=== PATIENT | female | born 1995 | race Caucasian/White ===

== ENCOUNTER 2017-03-24 11:08 | Inpatient (IN) | payer OTHER ==
[~2017-03-24] VITALS: Ht 167.6 cm; Wt 75.7 kg
[~2017-03-24 11:08] MED LIST: OXYTOCIN 30 UNITS/LR 500 ML BAG IV ONE
[2017-03-24 11:22] VITALS: Ht 167.6 cm; Wt 75.7 kg
[2017-03-24] MEDS ORDERED: PNV11TAB PO (11:25)
[2017-03-24] MEDS ORDERED: OXYTOCIN 30 UNITS/LR 500 ML IV PRN ×2 (11:30→21:00)
[2017-03-24] MEDS ORDERED: METHYLERGONOVINE 0.2 MG INJ IM PRN ×2 (11:30→21:00)
[2017-03-24] MEDS ORDERED: MISOPROSTOL 200 MCG TAB PR PRN ×2 (11:30→21:00)
[2017-03-24] MEDS ORDERED: OXYTOCIN 30 UNITS/LR 500 ML IV SCH (11:30)
[2017-03-24] MEDS ORDERED: CARBOPROST 250 MCG INJ IM PRN ×2 (11:30→21:00)
[2017-03-24] MEDS ORDERED: CEFAZOLIN 2 GM/50 ML (PMX) 50 ML IV SCH (11:30)
[2017-03-24 11:32] VITALS: BP 112/65; PULSE 20; RESP 20
[2017-03-24] MEDS: LACTATED RINGER'S 1,000 ML IV SCH ×3 (11:51→20:34)
[2017-03-24 12:31] LABS: BASOPHILS % 0.4 % (0.0-2.0); EOSINOPHILS # 0.2 10^3/ul (0.0-0.5); EOSINOPHILS % 1.3 % (0.0-7.0); HEMATOCRIT 35.7 % (37.0-47.0); HEMOGLOBIN 11.5 g/dl (12.0-16.0); MEAN CORPUSCULAR HEMOGLOBIN 27.8 pg (29.0-33.0); MEAN CORPUSCULAR HGB CONC 32.2 g/dl (32.0-37.0); MEAN CORPUSCULAR VOLUME 86.2 fl (82.0-101.0); MEAN PLATELET VOLUME 12.8 fl (7.4-10.4); MONOCYTE # 0.6 10^3/ul (0.3-0.9); MONOCYTES % 5.1 % (0.0-11.0); NEUTROPHIL # 7.3 10^3/ul (1.6-7.5); NEUTROPHILS % 65.7 % (39.0-77.0); PLATELET COUNT 243 10^3/UL (140-415); RED BLOOD COUNT 4.14 10^6/ul (4.20-5.40); RED CELL DISTRIBUTION WIDTH 14.3 % (11.5-14.5); WHITE BLOOD COUNT 11.2 10^3/ul (4.8-10.8)
[2017-03-24 12:53] LABS: INR 1.01; PROTIME 13.3 Sec (12.2-14.2)
[2017-03-24 12:54] LABS: PARTIAL THROMBOPLASTIN TIME 29.4 Sec (25.0-35.0)
--- NOTE | 2017-03-24 13:14 | HP ---
Date/Time of Note Date/Time of Note DATE: 03/24/17 TIME: 13:12 OB - History Hx of Present Chief Complaint: scheduled c/s Estimated Due Date: Mar 31, 2017 : 4 Para: 1 Spontaneous : 2 Therapeutic : 0 Care: Good Care Ultrasounds: Normal mid trimester US Obstetrical Complications: None Medical Complications: None Past Family/Social History * Past Medical, Surgical, Family and Obstetric Histories reviewed from chart. GBS Status: Negative OB Admission Exam Vital Signs Vital Signs Vital Signs Date Time Temp Pulse Resp B/P Pulse Ox O2 Delivery O2 Flow Rate FiO2 03/24/17 11:32 98.2 20 20 112/65 Room Air Physical Exam HEENT: WNL Heart: Rhythm Normal Lungs: Clear, Equal Abdomen: WNL Extremities: Normal Reflexes: Normal Heart Rate: 140's Accelerations: Accelerations Present Decelerations: No Decelerations Varibility: Moderate Last 72 hours Lab Results CBC & BMP 03/24/17 11:45 OB Assessment/Plan Reason for admission: section Plan: Section JIGNESH BRADFORD MD Mar 24, 2017 13:14
[2017-03-24] MEDS ORDERED: ONDANSETRON 4 MG INJ ONE ×2 (14:59→16:16)
[2017-03-24] MEDS ORDERED: PHENYLephrine (100 MCG/ML) 5ML SYG ONE ×4 (14:59→16:11)
[2017-03-24] MEDS ORDERED: OXYTOCIN 10 UNIT INJ ONE (14:59)
[2017-03-24] MEDS ORDERED: morphine SULFATE/PF (10 MG/10 ML) INJ ONE (14:59)
[2017-03-24] MEDS ORDERED: FENTAnyl 50 MCG/ML VIAL ONE (15:46)
--- NOTE | 2017-03-24 16:15 | SIPON ---
Date/Time of Note Date/Time of Note DATE: 03/24/17 TIME: 16:13 Operative Report Preoperative Diagnosis 39 weeks with previous c/s Postoperative Diagnosis Same Operation/Procedure Performed Repeat c/s Surgeon Jignesh Bradford MD cafeteria assistant Federico Barbour MD Anesthesia: spinal Estimated blood loss: other (500 ml) Transfusion Required none Specimen Placenta Grafts/Implants none Complications none JIGNESH BRADFORD MD Mar 24, 2017 16:15
[2017-03-24] MEDS ORDERED: METOCLOPRAMIDE 10 MG INJ ONE (16:16)
[2017-03-24] MEDS ORDERED: morphine 2 MG INJ IV PRN (17:00)
[2017-03-24] MEDS ORDERED: NALOXONE (0.4 MG/ML) INJ IV PRN (17:00)
[2017-03-24] MEDS ORDERED: ONDANSETRON 4 MG INJ IV PRN (17:00)
[2017-03-24] MEDS ORDERED: KETOROLAC 30 MG INJ IV PRN (17:00)
[2017-03-24] MEDS ORDERED: DIPHENHYDRAMINE 50 MG INJ IV PRN (17:00)
--- NOTE | 2017-03-24 17:14 | OPR ---
DATE OF OPERATION: 03/24/2017 PREOPERATIVE DIAGNOSIS: at 39 weeks, previous section. POSTOPERATIVE DIAGNOSIS: at 39 weeks, previous section. OPERATION PERFORMED: Repeat low-transverse section. SURGEON: Daniel Tolentino MD CARROTING MACHINE OPERATOR: Nevin Barbour MD ANESTHESIA: Spinal. ANESTHESIOLOGIST: Dr. Gleason OPERATIVE PROCEDURE: The patient was taken to the operating room, placed on the operating table. After successful spinal anesthesia was given, the patient was placed in supine position. The area was prepared and draped in the usual sterile fashion. Spinal anesthesia was tested and was satisfactory. Using scalpel, Pfannenstiel incision was made about 2 fingerbreadths above the symphysis pubis. The incision was carried down to the fascia. The fascia was incised and extended bilaterally with curved Pierson scissors. Two Katelyn's were used to separate the fascia from the muscle. The muscle was dissected in the midline down to the peritoneum. The peritoneum was secured with 2 Stefania's and incised with Metzenbaum scissors. Using a scalpel, a small transverse incision was made on the lower segment of the uterus. Upon entering the uterine cavity, bandage scissors were inserted to extend the incision bilaterally curved up. The baby was delivered from cephalic presentation. After suctioning clear of amniotic fluid, the baby was handed off to the team in attendance. Apgars were 8 and 9. The placenta was delivered without difficulty. The uterus was closed with number 1 Monocryl continuous locked. After assuring hemostasis, both ovaries and tubes were inspected. All looked normal. The peritoneum was closed with 2-0 Vicryl continuous. The fascia was closed with number 1 Vicryl continuous in 2 segments. Subcutaneous tissue was reapproximated with 2-0 plain. The skin was closed with aiden. ESTIMATED BLOOD LOSS: 500 mL. COUNTS: All counts were correct. Dictated By: Daniel Tolentino MD /irma/deja /Document#: [id number]
[2017-03-24] MEDS ORDERED: OXYTOCIN 30 UNITS/LR 500 ML IV ONE (20:42)
[2017-03-24] MEDS: OXYTOCIN 30 UNITS/LR 500 ML IV SCH (20:49)
[2017-03-24] MEDS: SENNA/DOCUSATE NA (8.6MG/50MG) TAB PO SCH (21:00)
[2017-03-24] MEDS ORDERED: OXYCODONE/ACETAMINOPHEN (5/325) TAB PO PRN (21:00)
[2017-03-24] MEDS ORDERED: LANOLIN 7 GM TUBE TOP PRN (21:00)
[2017-03-24 21:05] VITALS: BP 108/57; PULSE 68; RESP 18
[2017-03-24] MEDS: IBUPROFEN 800 MG TAB PO SCH (22:00)
[2017-03-25 00:10] VITALS: BP 95/46; PULSE 69; RESP 18
[2017-03-25] MEDS: OXYTOCIN 30 UNITS/LR 500 ML IV SCH (00:34)
[2017-03-25 04:10] VITALS: BP 100/49; PULSE 75; RESP 18
[2017-03-25] MEDS: LACTATED RINGER'S 1,000 ML IV SCH ×2 (05:11→12:34)
[2017-03-25] MEDS: IBUPROFEN 800 MG TAB PO SCH ×3 (06:00→21:51)
[2017-03-25 08:00] VITALS: BP 92/43; PULSE 68; RESP 18
[2017-03-25] MEDS: SENNA/DOCUSATE NA (8.6MG/50MG) TAB PO SCH ×2 (10:03→21:05)
[2017-03-25 10:12] LABS: BASOPHIL # 0.1 10^3/ul (0.0-0.1); BASOPHILS % 0.4 % (0.0-2.0); EOSINOPHILS # 0.1 10^3/ul (0.0-0.5); EOSINOPHILS % 0.8 % (0.0-7.0); HEMATOCRIT 36.2 % (37.0-47.0); HEMOGLOBIN 11.2 g/dl (12.0-16.0); LYMPHOCYTES # 1.9 10^3/ul (0.8-2.9); LYMPHOCYTES % 14.5 % (15.0-51.0); MEAN CORPUSCULAR HEMOGLOBIN 27.1 pg (29.0-33.0); MEAN CORPUSCULAR HGB CONC 30.9 g/dl (32.0-37.0); MEAN CORPUSCULAR VOLUME 87.4 fl (82.0-101.0); MEAN PLATELET VOLUME 12.7 fl (7.4-10.4); MONOCYTE # 0.8 10^3/ul (0.3-0.9); MONOCYTES % 6.1 % (0.0-11.0); NEUTROPHILS % 77.7 % (39.0-77.0); PLATELET COUNT 221 10^3/UL (140-415); RED BLOOD COUNT 4.14 10^6/ul (4.20-5.40); RED CELL DISTRIBUTION WIDTH 14.5 % (11.5-14.5); WHITE BLOOD COUNT 12.9 10^3/ul (4.8-10.8)
[2017-03-25 12:00] VITALS: BP 95/50; PULSE 68; RESP 18
[2017-03-25] MEDS: OXYCODONE/ACETAMINOPHEN (5/325) TAB PO PRN ×2 (18:26→22:33)
--- NOTE | 2017-03-25 19:30 | QN ---
Documentation Comment No complaint Afebrile VSS Abdomen soft ND POD #1 Stable Ambulate Advance diet. JIGNESH BRADFORD MD Mar 25, 2017 19:30
[2017-03-25 20:00] VITALS: BP 99/52; PULSE 69; RESP 21
[2017-03-26 04:00] VITALS: BP 98/80; PULSE 80; RESP 20
[2017-03-26] MEDS: IBUPROFEN 800 MG TAB PO SCH ×3 (06:01→21:33)
[2017-03-26 08:00] VITALS: BP 95/53; RESP 18
[2017-03-26] MEDS ORDERED: INFLUENZA VIRUS VACCINE 0.5 ML (DISPENSING) IM* ONE (09:00)
[2017-03-26] MEDS: SENNA/DOCUSATE NA (8.6MG/50MG) TAB PO SCH ×2 (09:57→21:33)
[2017-03-26] MEDS: OXYCODONE/ACETAMINOPHEN (5/325) TAB PO PRN ×2 (11:32→23:56)
[2017-03-26 13:30] VITALS: BP 106/46; PULSE 71; RESP 20
--- NOTE | 2017-03-26 15:07 | QN ---
Documentation Comment c/o left sided chest pain. Afebrile VSS Abdomen soft Will get Cardiology consult JIGNESH BRADFORD MD Mar 26, 2017 15:07
[2017-03-26 15:30] VITALS: BP 98/50; PULSE 63; RESP 18
[2017-03-26 19:30] VITALS: BP 113/51; PULSE 80; RESP 18
[2017-03-27 03:45] VITALS: BP 105/53; PULSE 65; RESP 18
[2017-03-27] MEDS: IBUPROFEN 800 MG TAB PO SCH ×3 (05:29→21:56)
[2017-03-27 08:00] VITALS: BP 99/51; RESP 18
[2017-03-27] MEDS ORDERED: DIPHTH/TET/ACEL PERTUSS (ADULT) 0.5 ML VIAL IM* ONE (09:00)
[2017-03-27] MEDS: SENNA/DOCUSATE NA (8.6MG/50MG) TAB PO SCH ×2 (09:46→21:55)
[2017-03-27 12:30] VITALS: BP 104/57; PULSE 78; RESP 18
[2017-03-27 16:00] VITALS: BP 108/55; PULSE 64; RESP 18
--- NOTE | 2017-03-27 16:03 | RADRPT ---
Echocardiogram Report Patient Name: ASH RODRIGUEZ Gender: Female Date: 1995 Study Date: 27-Mar-2017 Medical Record Transcriber: Althea Berry RDCS Location: [id number] Ref. Physician: KALEY HENSON Quality: Good Procedures: Transthoracic echocardiogram with complete 2D, M-Mode, and doppler examination. Indications: Chest Pain. Shortness of breath. 2D/M Mode Doppler Measurement Value Normal Ranges Measurement Value Normal Ranges LVIDd 2D 4.9 3.5 - 5.6 cm AV Peak Haresh 1.7 m/sec LVIDs 2D 3.3 2.1 - 4.1 cm AV Peak PG 12.0 mmHg FS 2D 32.8 % LVOT Peak Haresh 1.1 m/sec LVPWd 2D 0.9 0.6 - 1.1 cm LVOT Peak PG 4.0 mmHg IVSd 2D 0.9 0.6 - 1.1 cm MV E Peak Haresh 1.2 m/sec IVS/LVPW 2D 1.0 MV A Peak Haresh 0.6 m/sec AoR Diam 2D 2.2 2.0 - 3.7 cm MV E/A 2.0 LA/Ao 2D 2 0 - 1 MV Decel Time 218 msec EDV 2D 118.0 cm3 MV E/A 2.0 ESV 2D 35.9 cm3 TR Peak Haresh 2.6 m/sec LA Dimen 2D 3.3 2.3 - 4.0 cm TR Peak PG 26.0 mmHg RVSP 29.0 mmHg Findings Left Ventricle: Normal left ventricular systolic function. Normal left ventricular cavity size. Normal left ventricular wall thickness. Ejection fraction is visually estimated at 60 %. Tissue Doppler/Mitral Doppler indices are within normal limits. Right Ventricle: Normal right ventricular size. Normal right ventricular systolic function. Left Atrium: The left atrium is normal in size. Right Atrium: The right atrium is normal in size. Mitral Valve: Normal appearance and function of the mitral valve with trace physiologic regurgitation. Aortic Valve: Normal appearance of the aortic valve. No significant aortic stenosis or insufficiency. Tricuspid Valve: Normal appearance of the tricuspid valve. Estimated peak PA systolic pressure 29 mmHg. There is trace tricuspid regurgitation. Pulmonic Valve: Normal pulmonic valve appearance. Pericardium: Normal pericardium with no significant pericardial effusion. Aorta: Normal aortic root. IVC: Normal size and normal respiratory collapse consistent with normal right atrial pressure. Conclusions 1.Normal left ventricular systolic function. Normal left ventricular cavity size. Normal left ventricular wall thickness. Ejection fraction is visually estimated at 60 %. Tissue Doppler/Mitral Doppler indices are within normal limits. 2.Normal appearance and function of the mitral valve with trace physiologic regurgitation. 3.Normal appearance of the tricuspid valve. Estimated peak PA systolic pressure 29 mmHg. There is trace tricuspid regurgitation. Electronically Signed By: Kaley Henson 27-Mar-2017 16:02:14 -0700 Patient Name: ASH RODRIGUEZ Study Date: 27-Mar-2017 [id number]
[2017-03-27 16:07] LABS: THYROID STIMULATING HORMONE 2.16 MIU/L (0.465-4.680)
--- NOTE | 2017-03-27 16:40 | CONS ---
DATE OF ADMISSION: 03/24/2017 DATE OF CONSULTATION: 03/27/2017 CARDIOLOGY CONSULTATION REASON FOR CONSULTATION: Chest pain, assess for acute coronary syndrome, as well as shortness of br eath, assess for congestive heart failure. REQUESTING PHYSICIAN: JIGNESH BRADFORD MD. HISTORY OF PRESENT ILLNESS: Ms. Irizarry is a very pleasant 21-year-old female with history of G4, P2 with spontaneous abortions x2, who is status post delivery 3 days prior and now has compl aints of substernal chest pain ongoing for 1 to 2 days, both at rest and with exertion, described as a stabbing sensation across her chest and associated episodes of shortness of breath at rest and af ter walking she felt like she is just not able to catch a deep good breath. The patient most recent ly has had stable vital signs, denies current chest pain and shortness of breath. PAST MEDICAL HISTORY: As above in HPI. MEDICATIONS CURRENTLY IN HOSPITAL: 1. Motrin 800 mg q.8h. 2. Percocet. 3. Simethicone. 4. Senokot. 5. Lanolin. 6. Oxytocin. 7. Cytotec. ALLERGIES: NO KNOWN DRUG ALLERGIES. SOCIAL HISTORY: No current tobacco, ETOH or illicit drug use. FAMILY HISTORY: No history of cardiac or early CAD. REVIEW OF SYSTEMS: As above in HPI. CONSTITUTIONAL: No fevers, chills. PULMONARY: Shortness of breath. CARDIOVASCULAR: Chest pain. GASTROINTESTINAL: No vomiting. GENITOURINARY: Status post delivery. MUSCULOSKELETAL: No significant myalgias or arthralgias. ENDOCRINE: No documented diabetes mellitus or thyroid disease. PSYCHIATRIC: Possible anxiety. PHYSICAL EXAMINATION: VITAL SIGNS: Temperature 98.2, blood pressure 104/57, pulse 78, respiratory rate 18, saturating 99% . GENERAL: The patient is alert, awake, in no acute distress. NECK: JVP approximately 9 cm water. CHEST: Fair movement throughout with mildly decreased breath sounds at bases bilaterally. HEART: Regular rate and rhythm. Normal S1, S2, I/ systolic murmur, nondisplaced PMI. ABDOMEN: Positive bowel sounds, soft. EXTREMITIES: No pitting edema, 1+ pulses bilaterally, posterior tibial. LABORATORIES: As above in HPI with most recent from the 2nd, white count 7.9, hemoglobin 11.2, plat elet count of 221. RPR nonreactive. IMAGING STUDIES: No imaging studies for my review at this time. ECG: Reveals from today normal sinus rhythm at rate of 64 with mild sinus arrhythmia, normal axis a nd isolated T-wave inversion in lead V2. IMPRESSION: 1. Chest pain with positive reproducible chest pain on palpation. This is likely musculoskeletal p ain, assess for acute coronary syndrome. 2. Shortness of breath, assess for congestive heart failure with the patient's recent volume status and status post delivery with no significant edema and seems to be related to episodes of anxiety. 3. Abnormal electrocardiogram with anterior T-wave inversion. 4. Status post delivery, postop day #3. 5. History of asthma which may also relate to the patient's shortness of breath for which she uses inhaler. 6. Anemia. RECOMMENDATIONS: 1. At this time, would check serial EKGs to assess for any significant changes and thus check a rep eat EKG in the morning. EKG for any complaints of chest pain. 2. Would check a BNP to further assess the patient's current volume status. 3. Check 2-D echo to assess the patient's ejection fraction, wall motion and any major valve abnorm alities in the peripartum. 4. Would check general fasting lipid panel for general risk stratification and will send troponins q.6h. x2 to ensure patient's EKG abnormalities are chronic in nature and not due to any recent acute coronary syndrome. Thank you for allowing me to take part in the care of this patient. I will continue to follow very closely with you with recommendations to be made as the patient progresses through her inpatient hos pital clinical course. Dictated By: KALEY BLACK/FLY Conf#: [id number] DID#: [id number] CC: JIGNESH BRADFORD MD;*EndCC*
[2017-03-27 21:00] VITALS: BP 114/58; PULSE 74; RESP 17
--- NOTE | 2017-03-27 21:03 | QN ---
Documentation Comment No new complaint Afebrile VSS Abdomen soft ND Cariology consult noted and appreciated. Continue care per Cardiology. JIGNESH BRADFORD MD Mar 27, 2017 21:03
[2017-03-28] MEDS: OXYCODONE/ACETAMINOPHEN (5/325) TAB PO PRN (02:21)
[2017-03-28 04:00] VITALS: BP 113/66; PULSE 66; RESP 19
[2017-03-28] MEDS: IBUPROFEN 800 MG TAB PO SCH ×2 (05:33→13:37)
[2017-03-28 08:00] VITALS: BP 104/48; PULSE 67; RESP 18
[2017-03-28] MEDS: SENNA/DOCUSATE NA (8.6MG/50MG) TAB PO SCH (09:00)
--- NOTE | 2017-03-28 09:25 | RADRPT ---
Vent Rate: 64 bpm RR Interval: 0 msec [place] Interval: 152 msec QRS Duration: 80 msec QT Interval: 406 msec QTC Interval: 418 msec P-R-T [place]: 69 - 73 - 66 degrees Normal sinus rhythm with sinus arrhythmia Septal infarct , age undetermined Abnormal ECG Electronically Signed By: Shashank Pepe [id number]
--- NOTE | 2017-03-28 09:28 | RADRPT ---
Vent Rate: 65 bpm RR Interval: 0 msec [place] Interval: 158 msec QRS Duration: 82 msec QT Interval: 408 msec QTC Interval: 424 msec P-R-T [place]: 45 - 69 - 66 degrees Normal sinus rhythm with sinus arrhythmia Normal ECG Electronically Signed By: Shashank Pepe [id number]
[2017-03-28 12:00] VITALS: BP 110/58; PULSE 68; RESP 20
--- NOTE | 2017-03-28 12:23 | CONS ---
Date/Time of Note Date/Time of Note DATE: 03/28/17 TIME: 12:20 Assessment/Plan Assessment/Plan Chief Complaint/Hosp Course IMPRESSION: 1. Chest pain with positive reproducible chest pain on palpation. This is likely musculoskeletal pain, assess for acute coronary syndrome.-negative trop x 2/ NL EF by echo and no sig changes on repeat ecg. No current chest pain at this time 2. Shortness of breath, assess for congestive heart failure with the patient's recent volume status and status post delivery with no significant edema and seems to be related to episodes of anxiety. 3. Abnormal electrocardiogram with anterior T-wave inversion. 4. Status post delivery, postop day #3. 5. History of asthma which may also relate to the patient's shortness of breath for which she uses inhaler. 6. Anemia. Recc: -Continue supportive post-op care and Ibuprofen pain control -CP resolved and likely musculoskeletal -OK for d/c planning from cardiac standpoint Problems: Consultation Date/Type/Reason Admit Date/Time Mar 24, 2017 at 11:08 Initial Consult Date 03/27/2017 Type of Consultation: cardiology Reason for Consultation chest pain Referring Provider: JIGNESH BRADFORD MD Exam/Review of Systems Vital Signs Vitals Vital Signs Date Time Temp Pulse Resp B/P Pulse Ox O2 Delivery O2 Flow Rate FiO2 03/28/17 08:00 98.3 67 18 104/48 Room Air 03/28/17 04:00 0 03/25/17 09:41 21 Intake and Output 03/27/17 03/27/17 03/28/17 15:00 23:00 07:00 Intake Total 400 ml Balance 400 ml Exam Review of Systems: CONSTITUTIONAL: No fevers, chills. PULMONARY: No sob CARDIOVASCULAR: No chest pain/palpitations GASTROINTESTINAL: No nausea/vomiting. GENITOURINARY: No hematuria/dysuria. MUSCULOSKELETAL: No myagias/arthalgias. PSYCHIATRIC: The patient denies depression. NEUROLOGIC: No weakness Constitutional: alert, oriented Psych: no complaints Head: normocephalic ENMT: mucosa pink and moist Neck: jvd (9 cm water), supple Respiratory: clear to auscultation Cardiovascular: regular rate and rhythm Gastrointestinal: non-tender, soft Musculoskeletal: muscle tone (normal) Extremities: edema (none) Neurological: other (No focal deficits) Results Result Diagram: 03/25/17 0940 Results 24 hrs Laboratory Tests Test 03/27/17 14:45 03/27/17 18:12 03/28/17 00:31 B-Type Natriuretic Peptide 189 H Thyroid Stimulating Hormone (TSH) 2.160 Troponin I < 0.012 < 0.012 Medications Medications Current Medications Oxycodone/ Acetaminophen (Percocet (5/ 325)) 1 tab Q4H PRN PO PAIN LEVEL 4-6 Last administered on 03/26/17 06:01; Admin Dose 1 TAB; Start 03/24/17 at 21:00 Oxycodone/ Acetaminophen (Percocet (5/ 325)) 2 tab Q4H PRN PO PAIN LEVEL 7-10 Last administered on 03/28/17 02:21; Admin Dose 2 TAB; Start 03/24/17 at 21:00 Ibuprofen (Motrin) 800 mg Q8 PO Last administered on 03/28/17 05:33; Admin Dose 800 MG; Start 03/24/17 at 22:00 Simethicone (Mylicon) 160 mg Q8H PRN PO DISTENSION/GAS/BLOATING; Start at 21:00 Senna/Docusate Sodium 1 tab 1 tab BID PO Last administered on 03/28/17 09:00; Admin Dose 1 TAB; Start 03/24/17 at 21:00 Oxytocin/Lactated Ringer's 500 ml @ 0 mls/hr ONCE PRN IV For Hemorrhage Management; Start 03/24/17 at 21:00 Methylergonovine Maleate (Methergine) 0.2 mg ONCE PRN IM VAGINAL BLEEDING; Start 03/24/17 at 21:00 Carboprost Tromethamine (Hemabate) 250 mcg ONCE PRN IM VAGINAL BLEEDING; Start 03/24/17 at 21:00 Misoprostol (Cytotec) 1,000 mcg ONCE PRN [place] VAGINAL BLEEDING; Start 03/24/17 at 21:00 KALEY VILLAGRAN Mar 28, 2017 12:23
[2017-03-28 16:00] VITALS: BP 110/56; PULSE 68; RESP 18
--- NOTE | 2017-03-28 18:32 | DS ---
Date/Time of Note Date/Time of Note DATE: 03/28/17 TIME: 18:31 Obstetrical Discharge Record Final Diagnosis Final Diagnosis: Term delivered Other Final Diagnosis chest pain Section Section: Repeat Condition on Discharge Physical Assessment Voiding: Yes Bowel Movement: Yes Breast: Soft, non-tender, Filling Fundus: Firm Abdomen and Incision: Incision intact Calf Tenderness: No Patient Condition: Stable JIGNESH BRADFORD MD Mar 28, 2017 18:32
== END 2017-03-28 19:00 | disposition home or self-care (01) | DRG 766 ==
LOC: L-D 11:08 → PP1 21:08
PROVIDERS: ADMIT Obstetrics & Gynecology; ATTEND Obstetrics & Gynecology
PROC: 3E0P3VZ Introduction of Hormone into Female Reproductive, Percutaneous Approach (ICD-10-PCS; 2017-03-24)
PROC: 10D00Z1 Extraction of Products of Conception, Low, Open Approach (ICD-10-PCS; principal; 2017-03-24 14:00)
DX: O34.211 Maternal care for low transverse scar from previous cesarean delivery (principal); O99.02 Anemia complicating childbirth; Z37.0 Single live birth; Z3A.39 39 weeks gestation of pregnancy
CPT/HCPCS: 83880; 84443; 84484; 85025; 85610; 85730; 86592; 86850; 86900; 86901; 90686; 90715; 93005; 93306; 94760; 99464; J0690; J1885; J2210; J2274; J2370; J2405; J2590; J2765; J3010; J7120

== ENCOUNTER 2018-08-28 14:34 | Emergency (ER) | payer OTHER ==
[~2018-08-28] VITALS: Ht 172.7 cm; Wt 74.3 kg
[~2018-08-28 14:34] MED LIST changes: -OXYTOCIN 30 UNITS/LR 500 ML BAG IV ONE; +PNV11TAB PO
[2018-08-28 14:37] VITALS: Ht 172.7 cm; Wt 74.3 kg
[2018-08-28] MEDS ORDERED: METOCLOPRAMIDE 10 MG INJ IV ONE (21:00)
[2018-08-28] MEDS ORDERED: DIPHENHYDRAMINE 50 MG INJ IV ONE (21:00)
[2018-08-28] MEDS ORDERED: SOD CHLORIDE 0.9% 1,000 ML IV ONE (21:00)
[2018-08-28] MEDS ORDERED: ACET500C5 PO (22:55)
[2018-08-28] MEDS ORDERED: CEPH-443 PO (22:55)
[2018-08-28] MEDS ORDERED: METO10TA92 PO (22:55)
[2018-08-28 23:03] VITALS: BP 98/52; PULSE 79; RESP 18
--- NOTE | 2018-08-28 23:55 | ERD ---
ER Documentation Chief Complaint Chief Complaint Complains of abdominal pain HPI 23-year-old female patient who is currently is a presents to ED for vomiting during her , feeling dehydrated, having poor appetite as well as having periumbilical pain that started a few days ago. Patient reports that she predominately has pain in the left lower abdomen. Patient is up-to-date with her vaccines. Reports that about 3 weeks ago, she had some blood in her toilet bowl however is unsure if it was vaginal bleeding. Denies any dysuria. Denies any chest pain, shortness of breath, nausea, vomiting, diarrhea, neck stiffness. ROS All systems reviewed and are negative except as per history of present illness. Medications Home Meds Active Scripts Acetaminophen* (Tylophen*) 500 Mg Capsule, 1 CAP PO Q6H PRN for PAIN AND OR ELEVATED TEMP, #20 CAP Prov:BANDAR IZAGUIRRE PA-C 08/28/18 Cephalexin* (Keflex*) 500 Mg Capsule, 500 MG PO QID for 7 Days, CAP Prov:BANDAR IZAGUIRRE PA-C 08/28/18 Metoclopramide* (Reglan*) 10 Mg Tablet, 10 MG PO Q6 PRN for NAUSEA AND/OR VOMITING, #10 TAB Prov:BANDAR IZAGUIRRE PA-C 08/28/18 Reported Medications [id number] ( 19) 1 Each Tablet, 1 TAB PO DAILY, TAB 03/24/17 Allergies Allergies: Coded Allergies: No Known Allergy (Unverified , 03/24/17) PMhx/Soc Medical and Surgical Hx: pt denies Medical Hx, pt denies Surgical Hx Hx Alcohol Use: No Hx Substance Use: No Hx Tobacco Use: No Smoking Status: Never smoker FmHx Family History: No diabetes, No coronary disease Physical Exam Vitals Vital Signs Date Temp Pulse Resp B/P (MAP) Pulse Ox O2 O2 Flow FiO2 Time Delivery Rate 08/28/18 98.2 79 18 98/52 (67) 100 Room Air 23:03 08/28/18 99.1 81 20 124/58 100 14:37 (80) Physical Exam Const: [id number]-llaqceezx, well-nourished. In no acute distress. Head: Atraumatic, normocephalic Eyes: Normal Conjunctiva without injection. No purulent discharge. ENT: Normal external ear, nose. Moist oropharynx without tonsillar exudates. Non-erythematous pharynx. Uvula midline. No drooling. No trismus. Neck: No cervical midline tenderness. Full range of motion. No meningismus. No cervical lymphadenopathy. No JVD. Resp: Clear to auscultation bilaterally. No wheezing, rhonchi, rales, or crackl es. No accessory muscle use. No retractions. Cardio: Regular rate and rhythm. No murmurs, rubs or gallops. Abd: Soft, periumbilical tenderness, non distended. Normal bowel sounds. No palpable masses. No rebound tenderness. No guarding. Negative McBurney's point. Negative psoas sign. Negative obturator sign. Skin: No petechiae or rashes Back: No midline tenderness. No CVA tenderness. Ext: No cyanosis, or edema. Neur: Awake and alert. Normal gait. Normal coordination. Psych: Normal Mood and Affect Result Diagram: 08/28/18204908/28/182049 Results 24 hrs Laboratory Tests Test 08/28/18 20:50 White Blood Count 11.7 10^3/ul Red Blood Count 4.91 10^6/ul Hemoglobin 13.7 g/dl Hematocrit 41.5 % Mean Corpuscular Volume 84.5 fl Mean Corpuscular Hemoglobin 27.9 pg Mean Corpuscular Hemoglobin Concent 33.0 g/dl Red Cell Distribution Width 16.1 % Platelet Count 278 10^3/UL Mean Platelet Volume 12.2 fl Immature Granulocytes % 0.300 % Neutrophils % 56.0 % Lymphocytes % 36.8 % Monocytes % 4.8 % Eosinophils % 1.4 % Basophils % 0.7 % Nucleated Red Blood Cells % 0.0 /100WBC Immature Granulocytes # 0.030 10^3/ul Neutrophils # 6.6 10^3/ul Lymphocytes # 4.3 10^3/ul Monocytes # 0.6 10^3/ul Eosinophils # 0.2 10^3/ul Basophils # 0.1 10^3/ul Nucleated Red Blood Cells # 0.0 10^3/ul Urine Color YELLOW Urine Clarity CLOUDY Urine pH 7.0 Urine Specific [place] 1.017 Urine Ketones 1+ mg/dL Urine Nitrite NEGATIVE mg/dL Urine Bilirubin NEGATIVE mg/dL Urine Urobilinogen NEGATIVE mg/dL Urine Leukocyte Esterase NEGATIVE Lew/ul Urine Microscopic RBC 0 /HPF Urine Microscopic WBC 0 /HPF Urine Squamous Epithelial Cells FEW /HPF Urine Amorphous Crystals FEW /HPF Urine Bacteria MODERATE /HPF Urine Mucus MODERATE /HPF Urine Hemoglobin NEGATIVE mg/dL Urine Glucose NEGATIVE mg/dL Urine Total Protein NEGATIVE mg/dl Sodium Level 141 mmol/L Potassium Level 3.6 mmol/L Chloride Level 102 mmol/L Carbon Dioxide Level 23 mmol/L Anion Gap 16 Blood Urea Nitrogen 6 mg/dl Creatinine 0.51 mg/dl Est Glomerular Filtrat Rate mL/min > 60 mL/min Glucose Level 88 mg/dl Calcium Level 9.9 mg/dl Total Bilirubin 0.4 mg/dl Direct Bilirubin 0.00 mg/dl Indirect Bilirubin 0.4 mg/dl Aspartate Amino Transf (AST/SGOT) 22 IU/L Alanine Aminotransferase (ALT/SGPT) 47 IU/L Alkaline Phosphatase 78 IU/L Total Protein 9.0 g/dl Albumin 5.0 g/dl Globulin 4.00 g/dl Albumin/Globulin Ratio 1.25 Lipase 59 U/L Beta HCG, Quantitative 16055.0 mIU/ml Current Medications Medications Dose Sig/Dacia Start Time Status Last (Trade) Ordered Route PRN Stop Time Admin Dose Reason Admin 10 mg ONCE ONCE 08/28/18 DC 08/28/18 Metoclopramid IV 21:00 08/28/18 21:02 e HCl 21:01 (Reglan) 25 mg ONCE ONCE 08/28/18 DC 08/28/18 Diphenhydrami IV 21:00 08/28/18 21:02 ne HCl 21:01 (Benadryl) Sodium 1,000 ml @ Q1H ONCE 08/28/18 DC 08/28/18 Chloride 1,000 mls/hr IV 21:00 08/28/18 21:02 21:59 Procedures/MDM 33-year-old patient with no significant past medical history presents to ED complaining of vomiting, abdominal pain during . Patient is afebrile and nontoxic-appearing. An ultrasound, beta-hCG, CBC, type and RH, UA was orde red to evaluate patient. She given Reglan 10 mg IV, 25 mg IV Benadryl, 1 L of normal saline with improvement of her symptoms. Patient did not vomit here in the ED. CBC: No evidence of severe infection or anemia Urine: No elevation in nitrites, leukocyte esterase, hematuria. Moderate bacteria Rh: O positive. No indication for Rhogam at this time. beta Hc IMPRESSION: 1. Single live intrauterine corresponding to a mean gestational age of 11 weeks and 3 days. cardiac activity measures 161 bpm. Estimated due date is March 16, 2019. 2. Small posterior subchorionic hemorrhage. 3. 2.1 cm right ovarian cyst. The right ovary is otherwise unremarkable. The left ovary not visualized. No gross adnexal masses. No significant free fluid. Patient has a single IUP of 11 weeks as well as a small posterior subchorionic hemorrhage. 2.1 cm right ovarian cyst noted. Patient also has moderate bacteria noted on her urine test. Patient will be treated for a urinary tract infection. Low suspicion for symptomatic anemia, ectopic , sepsis, PID, appendicitis, ovarian torsion, tubo-ovarian abscess, surgical abdomen, or other emergent conditions. Patient was educated that there is a risk for threatened . Patient to follow up with [facility] in 2 days for further evaluation and treatment. Patient is to return sooner to the ED for any worsening symptoms. Patient's questions were answered. Patient understood and agreed with discharge plan. Departure Diagnosis: Primary Impression: Urinary tract infection Urinary tract infection type: site unspecified Hematuria presence: without hematuria Qualified Codes: N39.0 - Urinary tract infection, site not specified Additional Impression: Pelvic pain during Condition: Stable Patient Instructions: What Are Ovarian Cysts?, Understanding Urinary Tract Infections (UTIs), Bleeding During Early , Abdominal Pain, Early Referrals: JIGNESH BRADFORD MD [facility] YOU HAVE RECEIVED A MEDICAL SCREENING EXAM AND THE RESULTS INDICATE THAT YOU DO NOT HAVE A CONDITION THAT REQUIRES URGENT TREATMENT IN THE EMERGENCY DEPARTMENT. FURTHER EVALUATION AND TREATMENT OF YOUR CONDITION CAN WAIT UNTIL YOU ARE SEEN IN YOUR DOCTORS OFFICE WITHIN THE NEXT 1-2 DAYS. IT IS YOUR RESPONSIBILITY TO MAKE AN APPOINTMENT FOR FOLOW-UP CARE. IF YOU HAVE A PRIMARY DOCTOR --you should call your primary doctor and schedule an appointment IF YOU DO NOT HAVE A PRIMARY DOCTOR YOU CAN CALL OUR PHYSICIAN REFERRAL HOTLINE AT IF YOU CAN NOT AFFORD TO SEE A PHYSICIAN YOU CAN CHOSE FROM THE FOLLOWING [facility] [address] [facility]. [facility] [address] [facility] [facility] [address] [facility] [address] [facility] [address] [facility]. [facility] [address] [facility]. [facility] YOU HAVE RECEIVED A MEDICAL SCREENING EXAM AND THE RESULTS INDICATE THAT YOU DO NOT HAVE A CONDITION THAT REQUIRES URGENT TREATMENT IN THE EMERGENCY DEPARTMENT. FURTHER EVALUATION AND TREATMENT OF YOUR CONDITION CAN WAIT UNTIL YOU ARE SEEN IN YOUR DOCTORS OFFICE WITHIN THE NEXT 1-2 DAYS. IT IS YOUR RESPONSIBILITY TO MAKE AN APPOINTMENT FOR FOLOW-UP CARE. IF YOU HAVE A PRIMARY DOCTOR --you should call your primary doctor and schedule and appointment IF YOU DO NOT HAVE A PRIMARY DOCTOR YOU CAN CALL OUR PHYSICIAN REFERRAL HOTLINE AT . IF YOU CAN NOT AFFORD TO SEE A PHYSICIAN YOU CAN CHOSE FROM THE FOLLOWING [facility] INSTITUTIONS: [facility] [address] [place] [address] [facility] [address] [place] [address] [facility] [address] [place] [address] [facility] URGENT CARE/SPECIALTIES [facility] [place] [address] [facility] [address] [place], [place] [id number] OFFICE FAX [facility]O [address] [place], [place] [id number] DR. BRADFORD [place] [address] [place], [place] [id number] [place] [address] [facility], [address] [id number] NATALIE OLVERA [address] [place], [place] [phone] [facility] [place] [address] [place] [address] [address] [facility] [id number] - [address] GALLEGOS, JUS [address], [facility] [id number] OLIVER, KRISTEN [address] [facility]. [address], [facility] [phone] MULLER, [place] [address] [place] [address] [facility] Hours: 8:00 am - 5:00 pm Additional Instructions: Call your [facility] TOMORROW for an appointment during the next 2-3 days.See the doctor sooner or return here if your condition worsens before your appointment time. BANDAR IZAGUIRRE PA-C Aug 28, 2018 23:55
== END 2018-08-28 23:06 | disposition home or self-care (01) ==
LOC: FTE 14:34
DX: O23.41 Unspecified infection of urinary tract in pregnancy, first trimester (principal); R10.2 Pelvic and perineal pain; Z3A.11 11 weeks gestation of pregnancy
CPT/HCPCS: 36415; 76801; 80053; 81001; 83690; 84702; 85025; 86900; 86901; 96374; 96375; J1200; J2765; J7030; Z7502

== ENCOUNTER 2018-11-27 16:33 | Outpatient (CLI) | payer OTHER ==
[~2018-11-27] VITALS: Ht 167.6 cm; Wt 74.5 kg
[~2018-11-27 16:33] MED LIST changes: +ACET500C5 PO; +CEPH-443 PO; +METO10TA92 PO
[2018-11-27 16:41] VITALS: Ht 167.6 cm; Wt 74.5 kg
[2018-11-27 16:42] VITALS: BP 110/55
--- NOTE | 2018-11-27 19:33 | PN ---
Triage Information Date/Time Reason for visit: leakage of fluid Weeks of Gestation 24 weeks /Para Diabetes: none Hypertention: none Objective Vital Signs Date Temp Pulse Resp B/P (MAP) Pulse Ox O2 O2 Flow FiO2 Time Delivery Rate 11/27/18 98.3 110/55 16:42 (73) Heart Rate: 130's Heart Rate Comments Appropriate for GA Contractions: None Exam Sterile speculum exam negative Results/Medications Result Diagram: 11/27/18 1707 Results 24 hrs Laboratory Tests Test 11/27/18 16:03 11/27/18 17:07 Urine Color YELLOW Urine Clarity CLOUDY A Urine pH 8.0 Urine Specific [place] 1.016 Urine Ketones NEGATIVE Urine Nitrite NEGATIVE Urine Bilirubin NEGATIVE Urine Urobilinogen 1+ H Urine Leukocyte Esterase NEGATIVE Urine Microscopic RBC 1 Urine Microscopic WBC 4 Urine Squamous Epithelial Cells MODERATE Urine Bacteria FEW A Urine Hemoglobin NEGATIVE Urine Glucose NEGATIVE Urine Total Protein NEGATIVE White Blood Count 10.3 Red Blood Count 3.39 #L Hemoglobin 10.1 #L Hematocrit 30.2 #L Mean Corpuscular Volume 89.1 Mean Corpuscular Hemoglobin 29.8 Mean Corpuscular Hemoglobin Concent 33.4 Red Cell Distribution Width 14.5 Platelet Count 215 # Mean Platelet Volume 11.9 H Immature Granulocytes % 0.500 H Neutrophils % 60.5 Lymphocytes % 30.5 Monocytes % 6.6 Eosinophils % 1.4 Basophils % 0.5 Nucleated Red Blood Cells % 0.0 Immature Granulocytes # 0.050 H Neutrophils # 6.2 Lymphocytes # 3.1 H Monocytes # 0.7 Eosinophils # 0.1 Basophils # 0.1 Nucleated Red Blood Cells # 0.0 Imaging Results OB sono MVP normal Disposition: Discharge Assessment/Plan No sign of labor or SROM JIGNESH BRADFORD MD Nov 27, 2018 19:33
--- NOTE | 2018-11-27 19:51 | TRIAGE ---
OB Triage Datetime Report Generated by CPN: 11/27/2018 19:50 Datetime: 11/27/2018 18:04 Stage of : OB Triage Labor Evaluation Frequency: 0 Monitor Mode: External Pattern: Normal: <= 5 Contractions in 10 Minutes Heart Rate FHR Baseline Rate: 155 Monitor Mode: External US Variability: Moderate 6-25 bpm Accelerations: 15X15 Decelerations: None Category: Category I Datetime: 11/27/2018 17:55 Stage of : OB Triage Labor Evaluation Frequency: 0 Monitor Mode: External Heart Rate FHR Baseline Rate: 145 Variability: Moderate 6-25 bpm Accelerations: 10X10 Decelerations: None Category: Category I Datetime: 11/27/2018 16:54 Comments: US AT BEDSIDE Datetime: 11/27/2018 16:52 Stage of : OB Triage Assessment Type: Triage Maternal Assessment Level of Consciousness: Fully Conscious DTR's/Clonus: DTRs 2+; No Clonus Headache: Denies Blurred Vision: No Respiratory Effort: Unlabored; Regular Rhythm; Equal Expansion Breath Sounds, Left: Clear and Equal Breath Sounds, Right: Clear and Equal Nausea/Vomiting: Denies RUQ Epigastric Pain: Denies Lower Extremities Edema: None Degree: None Upper Extremities Edema: None Degree: None Facial Edema: None Temperature Route: Oral Fall Risk Assessment History of Falling: (0) No Secondary Diagnosis: (0) No Ambulatory Aid: (0) Bedrest/Nurse Assist IV Therapy: (0) No Gait: (0) Normal/Bedrest/Immobile Mental Status: (0) Oriented to Own Ability Fall Score: 0 Fall Risk Score Definition: No Risk: No action required Monitor Mode: External Monitor Mode: External US Datetime: 11/27/2018 16:50 Time of Arrival: 11/27/2018 16:20 EGA: 24.4 Arrived By: Ambulatory Arrived From: Dr. Jordan Chief Complaint: SENT FROM CLINIC with orders FOR SPEC EXAM, UA, CBC, CL Movement: Present Contractions: Denies/Absent Rupture of Membranes: Denies Vaginal Bleeding: None Vaginal Discharge: Present Recent Sexual Intercouse: Denies Abdominal Trauma: Not Applicable Patient Complaints: Other Time Provider Notified: 11/27/2018 19:27 Provider Notified: Dr. Tolentino Initial Plan: CL, UA, CBC, SPEC EXAM
== END 2018-11-27 19:38 | disposition home or self-care (01) ==
LOC: OBT 16:33 → L-D 16:35 → OBT 19:38
PROVIDERS: ATTEND Obstetrics & Gynecology
DX: O42.90 Premature rupture of membranes, unspecified as to length of time between rupture and onset of labor, unspecified weeks of gestation (principal); Z3A.24 24 weeks gestation of pregnancy
CPT/HCPCS: 76815; 76817; 81001; 85025; Z7500; G0463

== ENCOUNTER 2019-02-26 14:42 | Inpatient (IN) | payer MEDICAID, OTHER ==
[~2019-02-26] VITALS: Ht 167.6 cm; Wt 74.1 kg
[~2019-02-26 14:42] MED LIST changes: -ACET500C5 PO; -CEPH-443 PO; -METO10TA92 PO; +OXYTOCIN 30 UNITS/LR 500 ML BAG IV ONE
[2019-02-26 15:42] VITALS: Ht 167.6 cm; Wt 74.1 kg
[2019-02-26 15:43] VITALS: BP 114/63; PULSE 92; RESP 19
[2019-02-26] MEDS ORDERED: LACTATED RINGER'S 1,000 ML IV SCH (17:08)
[2019-02-26] MEDS ORDERED: MISOPROSTOL 200 MCG TAB PR PRN ×2 (17:30)
[2019-02-26] MEDS ORDERED: METHYLERGONOVINE 0.2 MG INJ IM PRN ×2 (17:30)
[2019-02-26] MEDS ORDERED: CARBOPROST 250 MCG INJ IM PRN ×2 (17:30)
[2019-02-26] MEDS ORDERED: OXYTOCIN 30 UNITS/LR 500 ML IV PRN ×2 (17:30)
[2019-02-26] MEDS ORDERED: CEFAZOLIN 2 GM/50 ML (PMX) 50 ML IVPB SCH ×2 (17:30)
[2019-02-26] MEDS: LACTATED RINGER'S 1,000 ML IV SCH ×2 (19:11→20:37)
[2019-02-26] MEDS ORDERED: morphine SULFATE/PF (10 MG/10 ML) INJ ONE (22:59)
[2019-02-26] MEDS ORDERED: PHENYLephrine (100 MCG/ML) 10ML SYG ONE (22:59)
[2019-02-26] MEDS ORDERED: METOCLOPRAMIDE 10 MG INJ ONE (22:59)
[2019-02-26] MEDS ORDERED: ONDANSETRON 4 MG INJ ONE (22:59)
[2019-02-26] MEDS ORDERED: OXYTOCIN 10 UNIT INJ ONE (23:00)
[2019-02-26] MEDS ORDERED: DEXAMETHASONE 4 MG/ML 1 ML INJ ONE (23:00)
[2019-02-26] MEDS ORDERED: KETOROLAC 30 MG INJ ONE (23:00)
[2019-02-26] MEDS ORDERED: AZITHROMYCIN 500MG/NS (PMX) 250 ML ONE (23:20)
[2019-02-26] MEDS ORDERED: KETOROLAC 30 MG INJ IV PRN (23:30)
[2019-02-26] MEDS ORDERED: ONDANSETRON 4 MG INJ IV PRN (23:30)
[2019-02-26] MEDS ORDERED: HYDROCODONE/APAP (5/325) TAB PO PRN (23:30)
[2019-02-26] MEDS ORDERED: NALOXONE (0.4 MG/ML) INJ IV PRN (23:30)
[2019-02-26] MEDS ORDERED: HYDROmorphONE 0.5 MG/0.5 ML SYG IV PRN ×2 (23:30)
[2019-02-26] MEDS ORDERED: morphine 2 MG INJ IV PRN ×2 (23:30)
[2019-02-26] MEDS ORDERED: ACETAMINOPHEN 500 MG TAB PO PRN (23:30)
[2019-02-26] MEDS ORDERED: DIPHENHYDRAMINE 50 MG INJ IV PRN (23:30)
[2019-02-26] MEDS ORDERED: NALBUPHINE HCL (10 MG/1 ML) INJ IV PRN (23:30)
[2019-02-27] MEDS ORDERED: LACTATED RINGER'S 1,000 ML IV SCH (00:32)
[2019-02-27] MEDS ORDERED: OXYTOCIN 30 UNITS/LR 500 ML IV SCH (00:32)
[2019-02-27] MEDS ORDERED: MISOPROSTOL 200 MCG TAB PR PRN (01:00)
[2019-02-27] MEDS ORDERED: OXYTOCIN 30 UNITS/LR 500 ML IV PRN (01:00)
[2019-02-27] MEDS ORDERED: OXYCODONE/ACETAMINOPHEN (5/325) TAB PO PRN (01:00)
[2019-02-27] MEDS ORDERED: METHYLERGONOVINE 0.2 MG INJ IM PRN (01:00)
[2019-02-27] MEDS ORDERED: CARBOPROST 250 MCG INJ IM PRN (01:00)
[2019-02-27] MEDS ORDERED: LANOLIN HPA 1 PKT TOP PRN (01:00)
[2019-02-27 03:40] VITALS: BP 106/53; PULSE 54; RESP 18
[2019-02-27 07:40] VITALS: BP 106/49; PULSE 59; RESP 16
[2019-02-27 08:00] VITALS: BP 106/49; PULSE 59; RESP 16
[2019-02-27] MEDS: SENNA/DOCUSATE NA (8.6MG/50MG) TAB PO SCH ×2 (08:41→21:52)
[2019-02-27] MEDS: LACTATED RINGER'S 1,000 ML IV SCH ×2 (14:38→19:30)
[2019-02-27 16:00] VITALS: BP 99/48; PULSE 61; RESP 18
[2019-02-27 20:00] VITALS: BP 107/53; PULSE 69; RESP 19
[2019-02-28] MEDS: LACTATED RINGER'S 1,000 ML IV SCH ×3 (01:08→17:08)
[2019-02-28 04:00] VITALS: BP 99/46; PULSE 62; RESP 19
[2019-02-28] MEDS: IBUPROFEN 800 MG TAB PO SCH ×3 (05:19→22:39)
[2019-02-28 08:30] VITALS: BP 99/52; PULSE 60; RESP 18
[2019-02-28] MEDS: SENNA/DOCUSATE NA (8.6MG/50MG) TAB PO SCH ×2 (11:53→20:58)
[2019-02-28] MEDS: OXYCODONE/ACETAMINOPHEN (5/325) TAB PO PRN ×2 (11:54→19:20)
[2019-02-28 16:03] VITALS: BP 100/50; PULSE 68; RESP 18
[2019-02-28 20:32] VITALS: BP 104/55; PULSE 67; RESP 18
[2019-03-01] MEDS: LACTATED RINGER'S 1,000 ML IV SCH ×2 (01:08→09:08)
[2019-03-01] MEDS: OXYCODONE/ACETAMINOPHEN (5/325) TAB PO PRN (01:50)
[2019-03-01 03:50] VITALS: BP 100/60; PULSE 60; RESP 18
[2019-03-01] MEDS: IBUPROFEN 800 MG TAB PO SCH ×2 (06:35→13:09)
[2019-03-01] MEDS: SENNA/DOCUSATE NA (8.6MG/50MG) TAB PO SCH (11:00)
== END 2019-03-01 13:40 | disposition home or self-care (01) | DRG 788 ==
LOC: OBT 14:42 → L-D 14:42 → OBT 15:57 → L-D 15:57 → PP1 02-27 03:32
PROVIDERS: ADMIT Obstetrics & Gynecology; ATTEND Obstetrics & Gynecology
PROC: 10D00Z1 Extraction of Products of Conception, Low, Open Approach (ICD-10-PCS; principal; 2019-02-26 21:00)
DX: O34.211 Maternal care for low transverse scar from previous cesarean delivery (principal); Z3A.37 37 weeks gestation of pregnancy; Z37.0 Single live birth
CPT/HCPCS: 85025; 85610; 85730; 86592; 86850; 86900; 86901; 87340; 99464; G0463; J0456; J0690; J1100; J1885; J2274; J2370; J2405; J2590; J2765; J7120